=== PATIENT | female | born 1975 | race Hispanic/Latino ===

== ENCOUNTER 2018-06-27 08:17 | Emergency (ER) | payer SELFPAY ==
[2018-06-27] MEDS ORDERED: Ketorolac Tromethamine 60 MG/2 ML VIAL ONE (08:31)
== END 2018-06-27 08:58 | disposition home or self-care (01) ==
LOC: ERS 08:17
DX: R10.12 Left upper quadrant pain (principal); Z87.891 Personal history of nicotine dependence
CPT/HCPCS: 96372; J1885

== ENCOUNTER 2020-05-21 16:32 | Emergency (ER) | payer MEDICARE, OTHER ==
[2020-05-21] MEDS ORDERED: Ketorolac Tromethamine 30 MG/ML VIAL ONE (18:43)
--- NOTE | 2020-05-21 20:03 | RAD ---
RIGHT KNEE 4 VIEWS: Date: 05/21/2020 HISTORY: Right knee pain. FINDINGS: There are arthritic changes of the knee. There is spurring along the lateral compartment. Some mild m edial compartment and patellofemoral degenerative change. No joint effusion. The bones appear slightl y demineralized. IMPRESSION: Moderate arthritic change of the knee. POS: OFF
--- NOTE | 2020-05-21 20:05 | RAD ---
RIGHT FOOT 3 VIEWS: Date: 05/21/2020 HISTORY: Right foot pain. FINDINGS: Postoperative changes of the fifth metatarsal noted. Plate and screws placed over a distal end of the fifth metatarsal. There is an obliquely oriented fracture through the metatarsal neck. There is some callus formation but fracture line is still evident. I do not have previous films for comparison. Ar thritic changes along the Lisfranc joint and first metatarsophalangeal joints are seen. Calcaneal spu rs are present. Osteophytic change on the dorsum of the midfoot is also seen. IMPRESSION: Arthritic change and postop change of the foot. POS: OFF
== END 2020-05-21 19:10 | disposition home or self-care (01) ==
LOC: ERS 16:32
DX: M25.561 Pain in right knee (principal); M25.571 Pain in right ankle and joints of right foot; G89.29 Other chronic pain; F32.9 Major depressive disorder, single episode, unspecified; F20.9 Schizophrenia, unspecified; Z79.899 Other long term (current) drug therapy; Z87.891 Personal history of nicotine dependence
CPT/HCPCS: 96372; J1885

== ENCOUNTER 2020-05-29 13:59 | Emergency (ER) | payer MEDICARE, OTHER ==
--- NOTE | 2020-05-29 14:25 | RAD ---
Portable chest: HISTORY: Chest pain COMPARISON: none FINDINGS: Lung espinosa are clear. Heart and mediastinum appear unremarkable. Vascularity is normal. Visualized osseous structures unremarkable. IMPRESSION: No acute finding
[2020-05-29 14:48] LABS: #Basophils 0.1 thou/uL (0.0-0.2); #Eosinphils 0.2 thou/uL (0.0-0.7); #Lymphocytes 2.3 thou/uL (1.20-3.40); #Monocytes 0.9 thou/uL (0.11-0.59); #Neutrophils 6.3 thou/uL (1.40-6.50); %Basophils 0.8 % (0.0-1.0); %Eosinophils 1.8 % (0.0-10.0); %Lymphocytes 23.5 % (21.0-51.0); %Monocytes 9.1 % (0.0-10.0); %Neutrophils 64.8 % (42.0-75.0); Hemoglobin 12.8 g/dL (12.0-16.0); Mean Corpuscular HGB CONC 32.1 g/dL (32.0-36.0); Mean Corpuscular Hemoglobin 28.3 pg (27.0-31.0); Mean Platelet Volume 7.3 fL (7.4-10.4); Platelet Count 225 thou/uL (130-400); RBC Distribution Width 12.6 % (11.5-14.5); Red Blood Cell (RBC) Count 4.52 mill/uL (4.20-5.40); White Blood Cell (WBC) Count 9.8 thou/uL (4.8-10.8)
[2020-05-29] MEDS ORDERED: Ketorolac Tromethamine 30 MG/ML VIAL ONE (14:50)
[2020-05-29 15:07] LABS: ALT (SGPT) 32 U/L (8-55); AST (SGOT) 18 U/L (5-34); Albumin 3.7 g/dL (3.5-5.0); Alkaline Phosphatase 112 U/L (40-110); Anion Gap 14 mmol/L (10-20); BUN (Urea Nitrogen) 18 mg/dL (7.0-18.7); Bilirubin, Total 0.2 mg/dL (0.2-1.2); Calc. Creatinine Clearance 0 mL/min (70-130); Carbon Dioxide 22 mmol/L (22-29); Chloride 106 mmol/L (98-107); Estimated GFR-MDRD 76; Globulin 2.9 g/dL (2.4-3.5); Glucose 108 mg/dL (70-105); Potassium 4.1 mmol/L (3.5-5.1); Protein, Total 6.6 g/dL (6.0-8.3); Sodium 138 mmol/L (136-145)
[2020-05-29 15:18] LABS: CK (CPK) 42 U/L (29-168); Lipase 29 U/L (8-78)
[2020-05-29 15:30] LABS: Digoxin Less than 0.15 ng/mL (0.8-2.0)
[2020-05-29 18:19] LABS: Troponin I Less than 0.010 ng/mL (< 0.028)
== END 2020-05-29 18:36 | disposition home or self-care (01) ==
LOC: ERS 13:59
DX: R07.2 Precordial pain (principal); F32.9 Major depressive disorder, single episode, unspecified; F20.9 Schizophrenia, unspecified; Z87.891 Personal history of nicotine dependence; Z79.899 Other long term (current) drug therapy; Z98.890 Other specified postprocedural states
CPT/HCPCS: 36415; 71045; 80053; 80162; 82550; 83690; 84484; 85025; 85379; 93005; 96374; J1885

== ENCOUNTER 2020-06-18 12:58 | Emergency (ER) | payer MEDICARE, OTHER ==
[2020-06-18] MEDS ORDERED: hydrOXYzine Pamoate 25 mg Capsule ONE (13:30)
== END 2020-06-18 15:08 ==
LOC: ERS 12:58
DX: F41.9 Anxiety disorder, unspecified (principal); I10 Essential (primary) hypertension; F31.9 Bipolar disorder, unspecified; F20.9 Schizophrenia, unspecified; Z87.891 Personal history of nicotine dependence; Z79.899 Other long term (current) drug therapy; Z71.6 Tobacco abuse counseling
CPT/HCPCS: 99406; Q0177

== ENCOUNTER 2020-07-19 15:23 | Emergency (ER) | payer MEDICARE, OTHER ==
[~2020-07-19 15:23] MED LIST: Iopamidol-370 76% 500 ML 1 ML ONE
[2020-07-19 16:19] LABS: #Eosinphils 0.1 thou/uL (0.0-0.7); #Lymphocytes 2.4 thou/uL (1.20-3.40); #Monocytes 0.6 thou/uL (0.11-0.59); #Neutrophils 4.6 thou/uL (1.40-6.50); %Basophils 0.4 % (0.0-1.0); %Eosinophils 1.8 % (0.0-10.0); %Lymphocytes 31.2 % (21.0-51.0); %Monocytes 7.6 % (0.0-10.0); %Neutrophils 59.1 % (42.0-75.0); Hemoglobin 12.6 g/dL (12.0-16.0); Mean Corpuscular HGB CONC 33.5 g/dL (32.0-36.0); Mean Corpuscular Hemoglobin 29.3 pg (27.0-31.0); Mean Corpuscular Volume 87.5 fL (78.0-98.0); Mean Platelet Volume 6.7 fL (7.4-10.4); Platelet Count 243 thou/uL (130-400); RBC Distribution Width 12.4 % (11.5-14.5); Red Blood Cell (RBC) Count 4.31 mill/uL (4.20-5.40); White Blood Cell (WBC) Count 7.8 thou/uL (4.8-10.8)
[2020-07-19 16:27] LABS: ALT (SGPT) 38 U/L (8-55); AST (SGOT) 21 U/L (5-34); Albumin 4.1 g/dL (3.5-5.0); Alkaline Phosphatase 116 U/L (40-110); Anion Gap 18 mmol/L (10-20); BUN (Urea Nitrogen) 20 mg/dL (7.0-18.7); Bilirubin, Total 0.2 mg/dL (0.2-1.2); Calc. Creatinine Clearance 0 mL/min (70-130); Calcium 9.2 mg/dL (7.8-10.44); Carbon Dioxide 24 mmol/L (22-29); Chloride 101 mmol/L (98-107); Glucose 111 mg/dL (70-105); Lipase 34 U/L (8-78); Protein, Total 7.1 g/dL (6.0-8.3); Sodium 139 mmol/L (136-145)
[2020-07-19 17:45] LABS: Bilirubin Negative (Negative); Blood, Urine Negative (Negative); Clarity Clear (Clear); Glucose, Urine (Dipstick) Normal (Negative); Ketone, Urine Negative (Negative); Leukocyte Negative Leu/uL (Negative); Nitrite Negative (Negative); Protein, Urine (Dipstick) Negative (Neg-Trace); Specific Gravity, Urine 1.026 (1.002-1.036); Urobilinogen Normal mg/dL (Less than 2)
[2020-07-19 17:55] LABS: Amphetamine Not Detected (NotDetected); Barbiturates Screen Not Detected (NotDetected); Benzodiazepine Screen Not Detected (NotDetected); Cocaine Metabolite Screen Not Detected (NotDetected); Medtox Control Line Valid? VALID (VALID); Medtox Reader # READER 1; Methadone Not Detected (NotDetected); Methamphetamine Not Detected (NotDetected); Opiate Screen Not Detected (NotDetected); Oxycodone Screen Not Detected (NotDetected); Phencyclidine (PCP) Not Detected (NotDetected); THC/Cannabinoid Screen Not Detected (NotDetected); Tricyclic Screen Not Detected (NotDetected)
--- NOTE | 2020-07-19 18:02 | RAD ---
Chest one view HISTORY: Chest pain. COMPARISON: 05/29/2020. FINDINGS: Cardiac silhouette is magnified by projection. Shallow inspiration accentuates pulmonary ma rkings. Mediastinum is midline with dorsal column spinal stimulator leads partially visualized. No lobar consolidation or evidence of pneumothorax. Degenerative changes involve the acromioclavicula r joints. IMPRESSION : No active cardiopulmonary abnormalities are demonstrated.
[2020-07-19] MEDS ORDERED: Promethazine HCl 12.5 MG SUPP ONE (18:06)
[2020-07-19] MEDS ORDERED: Ketorolac Tromethamine 30 MG/ML VIAL ONE (18:06)
[2020-07-19] MEDS ORDERED: Promethazine HCl 25 MG/ML VIAL ONE (18:07)
--- NOTE | 2020-07-19 18:51 | CT ---
CT abdomen and pelvis with IV contrast HISTORY: Abdomen pain. FINDINGS: The lung bases are clear. A 0.9 cm cyst is present within the left liver lobe. The gallblad mark, appendix, and uterus are surgically absent. A 0.6 cm calculus is present within a nondilated calyx at the inferior pole of the right kidney. No u reteral obstruction apparent. Dorsal column stimulator device in place. There are postoperative and prominent degenerative changes of the lumbar spine, including severe stenosis of the central canal at the L1-2 level. No evidence of bowel obstruction or inflammation. No free air or free fluid. IMPRESSION : No acute abnormalities are demonstrated. Nonobstructing 0.6 cm right renal calculus. 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 Prominent postoperative changes.
[2020-07-19] MEDS ORDERED: Acetaminophen 500 MG TAB ONE (20:08)
== END 2020-07-19 20:20 ==
LOC: ERS 15:23
DX: R10.30 Lower abdominal pain, unspecified (principal); R51.9 Headache, unspecified; R10.13 Epigastric pain; R60.0 Localized edema; M54.5 Low back pain; G89.29 Other chronic pain; I10 Essential (primary) hypertension; F17.210 Nicotine dependence, cigarettes, uncomplicated; Z79.899 Other long term (current) drug therapy
CPT/HCPCS: 36415; 71045; 74177; 80053; 80306; 81003; 83690; 84484; 85025; 93005; 96365; 96366; 96375; J1885; J2550; Q9967

== ENCOUNTER 2020-07-22 15:02 | Outpatient (CLI) | payer MEDICARE, OTHER ==
--- NOTE | 2020-07-22 16:17 | MMO ---
Bilateral MAMMO Bilat Screen [facility]. CLINICAL HISTORY: Patient is 45 years old and is seen for screening. The patient has no family history of breast cancer. The patient has no personal history of cancer. The patient has a history of Breast reduction in 2005. VIEWS: The views performed were: bilateral craniocaudal with tomosynthesis and bilateral mediolateral oblique with tomosynthesis. This study has been interpreted with the assistance of computer-aided detection. MAMMOGRAM FINDINGS: There are scattered fibroglandular densities. Benign calcifications are noted bilaterally. There are no suspicious masses, suspicious calcifications, or new areas of architectural distortion. IMPRESSION: THERE IS NO MAMMOGRAPHIC EVIDENCE OF MALIGNANCY. A ROUTINE FOLLOW-UP MAMMOGRAM IN 1 YEAR IS RECOMMENDED. THE RESULTS OF THIS EXAM WERE SENT TO THE PATIENT. ACR BI-RADS Category 2 - Benign finding MAMMOGRAPHY NOTE: 1. A negative mammogram report should not delay a biopsy if a dominant of clinically suspicious mass is present. 2. Approximately 10% to 15% of breast cancers are not detected by mammography. 3. Adenosis and dense breasts may obscure an underlying neoplasm. Reported by: CHA GENTILE MD Electonically Signed: [id number]
== END 2020-07-22 15:03 | disposition home or self-care (01) ==
LOC: BICMAMMO 15:02
PROVIDERS: ATTEND Family Medicine
DX: Z12.31 Encounter for screening mammogram for malignant neoplasm of breast (principal); Z98.82 Breast implant status
CPT/HCPCS: 77063; 77067